=== PATIENT | male | born 1945 | race Caucasian/White ===

== ENCOUNTER 2017-04-07 00:56 | Emergency (ER) | payer MEDICARE ==
[~2017-04-07] VITALS: Ht 182.9 cm; Wt 79.4 kg
[~2017-04-07 00:56] MED LIST: ASPIRIN EC81 MG PO; LISINOPRIL5 MG PO; METFORMIN HCL500 MG PO; NORCO 5-325 TA1 EACH PO; OMEPRAZOLE20 MG PO
[2017-04-07] MEDS ORDERED: METFORMIN HCL1000 M1 PO (01:14)
[2017-04-07] MEDS ORDERED: COLCHICINE0.6 M1 PO (01:16)
[2017-04-07] MEDS ORDERED: DIOVAN40 MG PO (01:17)
== END 2017-04-07 01:32 | disposition home or self-care (01) ==
LOC: ED 00:56
DX: Z48.3 Aftercare following surgery for neoplasm (principal); Z79.899 Other long term (current) drug therapy; Z79.82 Long term (current) use of aspirin
CPT/HCPCS: 99282

== ENCOUNTER 2017-12-24 09:05 | Day surgery (SDC) | payer OTHER ==
[~2017-12-24] VITALS: Ht 182.9 cm; Wt 70.8 kg
[~2017-12-24 09:05] MED LIST changes: +ALEVE PM CAPLE1 EACH PO; +CALCIUM + VITA1 EACH PO; +COLCHICINE0.6 M1 PO; +DILAUDID4 MG PO; +DIOVAN40 MG PO; +METFORMIN HCL1000 M1 PO
--- NOTE | 2017-12-24 10:48 | NUR ---
PREOP GIVEN WARM BLANKET ON HAS BEEN UPDATED ON WAIT.
--- NOTE | 2017-12-24 12:58 | NUR ---
12/24/17 1258 Etelvina Mao 1249 PATIENT ARRIVES TO PACU SLEEPING, DOES NOT RESPOND TO VERBAL STIMULI. MASK AT 6 LITERS, RESP EVEN AND UNLABORED. 1255 PATIENT AWAKENS WITH VERBAL STIMULI, RESP EVEN AND UNLABORED, MASK OFF, SATS 97% ON ROOM AIR. PATIENT DENIES PAIN, THEN BACK TO SLEEP. 1258 XRAY AT BEDSIDE.
--- NOTE | 2017-12-24 14:21 | NUR ---
DR FERNANDO NOTIFIED OF XRAY REPORT, OKAY TO DISCHARGE.
--- NOTE | 2017-12-28 07:32 | OR ---
[facility] [address], [place] [address] Signed DATE OF OPERATION: SURGEON: Misty Fernando MD PREOPERATIVE DIAGNOSIS: Metastatic angiosarcoma. POSTOPERATIVE DIAGNOSIS: Metastatic angiosarcoma. PROCEDURES PERFORMED: 1. Placement of left IJ cdje-N-xpdhnqpn. 2. Physician-directed fluoroscopy. 3. Physician-directed ultrasound. ESTIMATED BLOOD LOSS: None. INDICATIONS: Duncan is a 72-year-old gentleman, who in 2005 was diagnosed with angiosarcoma on his right yarsanism, that had been removed and later he went back and removed more with an additional full neck dissection along with a superficial parotidectomy. Full-thickness skin grafts were utilized. A 20 region lymph nodes were all negative. Unfortunately, the angiosarcoma is now shown up in his liver. He is therefore, awaiting his chemotherapy. He was asked by his medical oncologist to see me for placement of his avfl-U-unfdbvxx. I met with the, Norbert, his daughter in the office. I kiarra a picture of a port catheter for him, I explained to him the placement of a port catheter along the expected intraop and postop course. We did review the risks including, but not limited to bleeding, infection, scarring, change in contour of the skin, catheter embolization requiring retrieval, pneumothorax requiring chest tube placement, and other unforeseen comorbidities. He had expressed understanding and wished to proceed. PROCEDURE NOTE: Geneva was taken into our operating room and placed in the supine position under anesthesia per our nurse disc sander. He was given preoperative antibiotics along with subcutaneous heparin. SCDs were utilized. He was then prepped and draped in the usual sterile fashion. We then used our ultrasound to locate the left internal jugular vein. Local anesthetic was injected over that area and the vein was entered on the 1st pass of the needle. The wire was able to feed without any resistance, whatsoever. The position of the wire was checked with our fluoroscopy unit. After this, the dilator was passed through the skin and out a short distance on his neck. Again, the position was checked Electronically Signed By: MISTY FERNANDO MD 12/28/17 0732 PATIENT NAME: DUNCAN WHITNEY OPERATIVE REPORT DATE OF : 47 REPORT #: [id number] PHYSICIAN: MISTY FERNANDO MD PCP: CHILANGO SALINAS MD REPORT IS CONFIDENTIAL AND NOT TO BE RELEASED WITHOUT AUTHORIZATION [facility] [address], [place] [address] Signed with the help of fluoroscopy unit and the wire was able to pass in and out of the dilator without any resistance, whatsoever. After this, the wire was removed and the catheter was inserted into the dilator and passed around to the right side next to the heart. The catheter was able to flush and draw quite readily. We then removed our dilator sheath. Additional local anesthetic was injected over the left chest wall and his left neck, and we developed a pocket on the left chest wall sharply with a #15 blade knife and bluntly with the hemostat. We then passed the dilator up over the clavicle up to the left neck. We were able to bring the catheter down through the tunnel on to the left chest wall. The catheter was cut the length and the hub was placed onto the catheter and a collar was placed over the connection. The port was able to draw and flush quite readily. We checked a full length of the catheter and it was in good position with no kinks. We then sutured in place with 3 interrupted number 2-0 Prolene sutures. The catheter was able to draw and flush quite readily with our concentrated heparin. We checked the position of the catheter from one and the other, appears to be in good position with no kinks, whatsoever. The wound was then irrigated and suctioned out until clear. We closed the dermis with interrupted 3-0 Monocryl suture on the chest wall and closed the skin with a running 6-0 fast absorbing plain gut suture, on the neck we closed the 4 mm incision with the 5-0 Monocryl suture, and then the skin edges were reapproximated with running 6-0 fast absorbing plain gut suture. Dry gauze and tape were then applied. Geneva was then transferred over to his hospital bed and taken into recovery room in stable condition. His initial chest x-ray has been performed and it looks like there is no pneumothorax and it looks like the catheter is in good position. I am still awaiting the official read. Overall Geneva tolerated the procedure quite well. He has no increased work of breathing, or shortness of breath. Misty Fernando MD ALB/MODL /[id number] cc: MD Chilango Ely MD Dr. LAURA DAVIS Electronically Signed By: MISTY FERNANDO MD 12/28/17 0732 PATIENT NAME: DUNCAN WHITNEY OPERATIVE REPORT DATE OF : 47 REPORT #: [id number] PHYSICIAN: MISTY FERNANDO MD PCP: CHILANGO SALINAS MD REPORT IS CONFIDENTIAL AND NOT TO BE RELEASED WITHOUT AUTHORIZATION [facility] [address] [place], [place] [address] Signed Misty Fernando MD Copies: HAIR RIVERA MD, TIMOTHY MD BOWER, ANDREW L MD ~ Electronically Signed By: MISTY FERNANDO MD 12/28/17 0732 PATIENT NAME: DUNCAN WHITNEY OPERATIVE REPORT DATE OF : 47 REPORT #: [id number] PHYSICIAN: MISTY FERNANDO MD PCP: CHILANGO SALINAS MD REPORT IS CONFIDENTIAL AND NOT TO BE RELEASED WITHOUT AUTHORIZATION
== END 2017-12-24 14:10 | disposition home or self-care (01) ==
LOC: DS 09:05
PROVIDERS: Colon & Rectal Surgery
PROC: 02HV33Z Insertion of Infusion Device into Superior Vena Cava, Percutaneous Approach (ICD-10-PCS; 2017-12-24)
PROC: B518ZZA Fluoroscopy of Superior Vena Cava, Guidance (ICD-10-PCS; 2017-12-24)
PROC: B548ZZA Ultrasonography of Superior Vena Cava, Guidance (ICD-10-PCS; 2017-12-24)
PROC: 0JH60XZ Insertion of Tunneled Vascular Access Device into Chest Subcutaneous Tissue and Fascia, Open Approach (ICD-10-PCS; principal; 2017-12-24 10:45)
DX: C78.7 Secondary malignant neoplasm of liver and intrahepatic bile duct (principal); C49.0 Malignant neoplasm of connective and soft tissue of head, face and neck; I10 Essential (primary) hypertension; K21.9 Gastro-esophageal reflux disease without esophagitis; E78.5 Hyperlipidemia, unspecified; E11.9 Type 2 diabetes mellitus without complications; B19.20 Unspecified viral hepatitis C without hepatic coma; G47.30 Sleep apnea, unspecified; Z79.82 Long term (current) use of aspirin; Z79.84 Long term (current) use of oral hypoglycemic drugs; Z79.899 Other long term (current) drug therapy; Z98.890 Other specified postprocedural states
CPT/HCPCS: 00532; 71045; 77001; C1788; J0690; J1644; J2250; J2405; J2704; J3010; J7120

== ENCOUNTER 2018-01-23 15:26 | Inpatient (IN) | payer MEDICARE ==
[~2018-01-23] VITALS: Ht 182.9 cm; Wt 70.3 kg
[~2018-01-23 15:26] MED LIST changes: +ATIVAN1 MG PO; +DEXAMETHASONE4 MG PO; +ONDANSETRON ODT8 MG PO; +TRAZODONE HCL50 MG PO
--- OUTSIDE RECORDS SUMMARY | 2018-01-23 15:32 | XMS ---
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 E.Zechariah VISIT COUNT (12 MO.) 2 LUZ ELENA Ledesma TOTAL 2 NOTE: Visits indicate total known visits. ED/UCC VISIT TRACKING (12 MO.) 01/23/2018 15:27 LUZ ELENA Lopez OR TYPE: Emergency COMPLAINT: - POSS PORT INFECTION 04/07/2017 00:57 LUZ ELENA Lopez OR TYPE: Emergency COMPLAINT: - WOUND CHECK BACK OF SCALP,S/P DIAGNOSES: - long term care phlebotomist (current) use of aspirin - Aftercare following surgery for neoplasm - Other senior care (current) drug therapy INPATIENT VISIT TRACKING (12 MO.) No inpatient visits to display in this time frame [id number]
[2018-01-23] MEDS ORDERED: TRIAMCINOLONE A15 G1 TOP (16:53)
[2018-01-23] MEDS ORDERED: ALLERGY EYE DROP5 ML OD (16:53)
--- NOTE | 2018-01-23 19:57 | NUR ---
NOTIFIED DR. KEANE ABOUT PATIENT'S MAGNESIUM LEVEL OF 0.9. MD TO PUT IN ORDERS.
--- NOTE | 2018-01-23 20:15 | NUR ---
PT ARRIVES TO ROOM 130 AT 1940 VIA STRETCHER, PT ABLE TO STAND AND TRANSFER HIMSELF INTO BED. PT THEN UP TO BATHROOM WITH SBA, VOIDED 400ML AND HAD SMALL STOOL, URINE SAMPLE SENT TO LAB. PT THEN RETURNED TO BED. ALERT/ORIENTED, DENIES PAIN. LUNGS CLEAR IN UPPER WITH CRACKLES NOTED IN BASES, RA, REGULAR RATE, DENIES SOB. HR REGULAR, DENIES CHEST PAIN. BOWEL TONES ACTIVE, DENIES NAUSEA. SKIN IS VERY DRY AND FLAKY. PT HAS GOLF BALL SIZED AREA TO RIGHT SHINTO AND TENNIS BALL SIZED AREA TO RIGHT POSTERIOR HEAD WHERE HE HAS HAD SKIN CANCER REMOVED. THE SKIN IN THOSE AREAS APPEARS DISCOLORED AND THERE IS A SCAB PRESENT TO THE POSTERIOR SITE. PT ALSO HAS A SMALL SPOT THAT HE CALLS A CYST TO HIS COCCYX THAT HE STATES HE HAS ALWAYS HAD AND IS SOMETIMES PAINFUL. PICTURES OF THESE AREAS PLACED IN CHART BY ED KATHERIN RAND. PORT TO LEFT CHEST HAS ~2CM OPEN SPOT, PORT IS VISIBLE. SITE IS COVERED WITH GAUZE. CB, SLIDING SCALE HELD DUE TO PT NPO STATUS. IV SITE FLUSHED WNL, IV FLUIDS STARTED. PT'S MAGNESIUM WAS 0.9, DR. KEANE NOTIFIED, STATES HE WILL ORDER IV MAGNESIUM REPLACEMENT.
--- NOTE | 2018-01-23 22:13 | NUR ---
PT REQUESTED SOMETHING TO HELP HIM SLEEP, NORMALLY TAKES 50MG PO TRAZODONE, CALLED DR. KEANE WHO STATES TO ORDER THE SAME FOR HERE.
--- NOTE | 2018-01-23 23:30 | NUR ---
ASSESSMENT COMPLETED, NO CHANGES FROM PREVIOUS ASSESSMENT. DRESSING TO LEFT PORT SITE CHANGED, PACKED WOUND OPENING WITH DAKINS SOAKED GAUZE STRIP AND COVERED WITH GAUZE AND TAPE, PT TOLERATED WELL. PT DENIES FURTHER REQUESTS AT THIS TIME, WILL CONTINUE TO MONITOR.
--- NOTE | 2018-01-24 02:41 | NUR ---
PT APPEARS TO BE SLEEPING, NO APPARENT DISTRESS. RESPIRATIONS EVEN AND UNLABORED, RR:20, SPO2:94% ON RA, HR:79. WILL ALLOW FOR REST AND CONTINUE TO MONITOR.
--- NOTE | 2018-01-24 04:00 | NUR ---
PT UP TO BATHROOM WITH SBA, VOIDED 1000ML AND HAD SMALL BM, THEN RETURNED TO BED. ASSESSMENT COMPLETED, NO CHANGES FROM PREVIOUS ASSESSMENT. PER PT ORDERS, PT DOES NOT NEED TO BE NPO TILL 0900, ICE WATER PROVIDED. IV REMAINS PATENT, INFUSING WNL. PT DENIES FURTHER REQUESTS, WILL CONTINUE TO MONITOR.
--- NOTE | 2018-01-24 06:25 | NUR ---
PT RESTING WITH EYES CLOSED, NO APPARENT DISTRESS. RR:18, SPO2:95% ON RA, HR:73. VANCO INFUSION STARTED.
--- NOTE | 2018-01-24 07:32 | NUR ---
CRITICAL LAB VALUE RECEIVED FROM EDGAR IN LAB. PT'S CALCIUM IS 5.9, DR. KEANE NOTIFIED AT THIS TIME, NO ORDERS RECEIVED AT THIS TIME.
--- NOTE | 2018-01-24 12:18 | NUR ---
ASSESSMENT HELD AND ACCUCHECK HELD PATIENT IS ASLEEP AT THIS TIME. NO DISTRESS NOTED.
--- NOTE | 2018-01-24 13:28 | NUR ---
REMAINS ASLEEP, NO DISTRESS NOTED. IVF INFUSING AT 75 ML/HR.
--- NOTE | 2018-01-24 15:00 | NUR ---
UP TO BR WITH ASSIST TO VOID 900 ML OF CLEAR JEANNINE URINE. SPONGE BATH GIVEN WHILE UP. LOTION APPLIED TO EXTREMLY DRY SKIN. DENIES PAIN. BACK TO BED W/O INCIDENT. GRANDDAUGHTER IS IN ROOM.
--- NOTE | 2018-01-24 16:00 | NUR ---
ASSESSMENT DONE. NO FUTHER CHANHES. AWAITING PORT-A-CATH DC'D PER DR. FERNANDO. THIS PLAN TO BE DONE AFTER DR. FERNANDO OFFICE HOURS.
--- NOTE | 2018-01-24 17:10 | NUR ---
TO OR VIA BED. REPORT TO OR NURSES. PT WILL TRANSFERRED TO MEDICAL FLOOR POST DC OF PORT-A-CATH.
--- NOTE | 2018-01-24 17:40 | NUR ---
report phoned to med-surg.
--- NOTE | 2018-01-24 18:21 | NUR ---
01/24/181820 Juju Skelton 1806- PT ARRIVES TO PACU AWAKE AND ORIENTED. OXYGEN SAT HIGH 90'S TO 100% ON RA. PT REPORTS NO PAIN OR NAUSEA. 1812- PT PROVIDED CHAP STICK PER REQUEST. 1821- PT PROVIDED WATER. TOLERATED WELL. REPORTS NO PAIN, NAUSEA, OR DIZZINESS.
--- NOTE | 2018-01-24 18:33 | NUR ---
PT ARRIVED TO ROOM 124 AT 1830 WITH MARI PANDEY. PT SITTING UP IN BED DRINKING WATER. NO NAUSEA OR PAIN. DURAN DRESSING C/D/I. SCDs IN PLACE.
--- NOTE | 2018-01-24 18:53 | NUR ---
POST OP VITAL SIGNS POSTED ON WHITE BOARD. WHITE BOARD UPDATED. FAMILY AT BEDSIDE. CALL LIGHT WITHIN REACH.
--- NOTE | 2018-01-24 19:25 | NUR ---
IN ROOM FOR REPORT, PT IS AWAKE IN BED EATING. HE DENIES PAIN AND FURTHER NEEDS AT THIS TIME. CALL LIGHT IS WITHIN REACH AND FAMILY IS IN ROOM.
--- NOTE | 2018-01-24 20:00 | NUR ---
POST SURGERY VITALS COMPLETED. PT AWAKE, WATCHING TV, REQUESTED AND RECEIVED ICE WATER. NO OTHER NEEDS.
--- NOTE | 2018-01-24 21:20 | NUR ---
VITALS COMPLETED. PT MOSTLY SLEEPY. WANTS A SLEEPING PILL, WILL LET HIS NURSE KNOW. NO OTHER NEEDS AT THIS TIME.
--- NOTE | 2018-01-24 22:30 | NUR ---
LAST POST OP VITALS COMPLETED. ASSISTED UP TO USE URINAL. ABLE TO STAND AT BEDSIDE, STEADY, DID NEED HELP GETTING UP TO A SITTING POSITION. FRESH ICE WATER GIVEN.
--- NOTE | 2018-01-25 00:18 | NUR ---
PT IS AWAKE IN BED, FRESH ICEWATER GIVEN, PT DENIES FURTHER NEEDS.
--- NOTE | 2018-01-25 02:37 | NUR ---
PRN PAIN MEDICATIONS ADMINISTERED FOR PT REPORTED 4/10 PAIN AT SURGICAL SITE AND LEGS. PT STATES "PAIN IS KEEPING ME FROM SLEEPING". CALL LIGHT IN REACH, IVF INFUSING. PT GIVEN ICE WATER.
--- NOTE | 2018-01-25 03:40 | NUR ---
PT IS RESTING WITH EYES CLOSED, RESPIRATIONS ARE EVEN AND NONLABORED. CALL LIGHT IS WITHIN REACH.
--- NOTE | 2018-01-25 04:40 | NUR ---
PT REPORTS HE SLEPT FOR A COUPLE HOURS. DRESSING HAS DRY OLD DRAINAGE, REPLACED SOME TAPE THAT FELL OFF. HE STATES HE DOES NOT NEED ANY PAIN MEDICINE AT THIS TIME. FRESH ICEWATER AT BEDSIDE AND PT DENIES FURTHER NEEDS AT THIS TIME.
--- NOTE | 2018-01-25 07:35 | NUR ---
RECIEVED CHANGE OF SHIFT REPORT FROM ANYA PANDEY. PATIENT RESTING COMFORTABLY IN BED. WHITE BOARD UPDATED. CALL LIGHT WITHIN REACH. IV FLUIDS INFUSING. ANTIBIOTIC INFUSING.
--- NOTE | 2018-01-25 07:47 | NUR ---
CALLED DR. KEANE WITH POSITIVE LAB RESULTS ON THE BLOOD CULUTRE OF GRAM POS COCCI ON BOTH.
--- NOTE | 2018-01-25 08:05 | CONS ---
[facility] [address], [place] [address] Signed DATE OF CONSULTATION: 01/24/2018 CHIEF COMPLAINT: Left IJ Gxvu-Z-Lgkekdhw wound dehiscence. HISTORY OF PRESENT ILLNESS: Geneva is a 72-year-old gentleman, who in 2016 was diagnosed with angiosarcoma of his right episcopal. He had that excised and a full neck dissection done along with a superficial parotidectomy. Full-thickness skin grafts were employed. Twenty regional lymph nodes were all negative. Unfortunately, the cancer has now shown up in his liver. Initially, he declined chemotherapy. Now, he was willing to proceed. Consequently, his medical oncologist asked me to place a Xjdr-H-Eobhjnsv. We placed a left IJ Vwjt-V-Auikbxae back on 12/24/2017 with the help of fluoroscopy and ultrasound. Geneva had spend an enormous amount of time out in the sun throughout his life. His entire chest and shoulders and neck are quite damaged from the sun. The skin is thin and very leathery. Geneva himself is also quite thin. I had explained to Geneva this is concerning for future wound problems along with his chemotherapy. We placed his Fyrb-M-Imrlskfb right up against the muscle on his left chest wall and we sutured the skin incision together very carefully. Unfortunately, he has now developed pneumonia and dehiscence of the wound on his left chest wall. He was admitted last evening to our Internal Medicine Service and started on antibiotics. I have been asked to see him to remove his Zzid-Z-Kpzvymez. ALLERGIES: None. MEDICATIONS: 1. Aspirin. 2. Calcium carbonate. 3. Vitamin D. 4. Colchicine. 5. Hydromorphone. 6. Ketotifen fumarate ophthalmic solution. 7. Metformin. 8. Omeprazole. 9. Triamcinolone. 10. Valsartan. PAST MEDICAL HISTORY: Hypertension, gastroesophageal reflux disease, hyperlipidemia, diabetes mellitus, angiosarcoma with metastatic disease to the liver. PAST SURGICAL HISTORY: Electronically Signed By: MISTY FERNANDO MD 01/25/18 0805 PATIENT NAME: KINJAL WHITNEY CONSULTATION DATE OF : 47 REPORT #: [id number] PHYSICIAN: MISTY FERNANDO MD PCP: RAJAT SALINAS MD REPORT IS CONFIDENTIAL AND NOT TO BE RELEASED WITHOUT AUTHORIZATION [facility] [address] [place] [id number] Signed Includes tympanoplasty, sinus surgery, hernia repair, ankle surgery, excision of the angiosarcoma on the right episcopal with a full right neck dissection including right superficial parotidectomy, and left internal jugular vein Xxhu-Z-Gofjxotw placement on 12/24/2017. SOCIAL HISTORY: He does not smoke. Does not drink. He does not use drugs. 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 His daughter is going to take that over. He is currently with one child remaining. His primary care provider is Dr. Rufus Salinas. His medical oncologist is Dr. Ru Hsu. His surgeon is Dr. Fallon Ayala at [facility]. FAMILY HISTORY: There is cancer and colonic polyps in the family. REVIEW OF SYSTEMS: He had 10 systems reviewed and of course he has had weight loss with hearing loss with need for hearing aids. He talked about some throat pain, his poor appetite, his increased urinary frequency, the diabetes, his insomnia, and lack of energy. PHYSICAL EXAMINATION: GENERAL: Kinjal is a 72-year-old gentleman, who appears certainly thin today, but I would not say quite cachectic. He is alert, awake, and interactive. He answers appropriately. LUNGS: Clear to auscultation. HEART: Regular rate and rhythm. ABDOMEN: Benign. I could see the skin graft on his right episcopal. Over the left chest wall, half the incision for his Ywke-C-Srntcdih has dehisced with some fluid in place. No specific signs or symptoms of infection on the skin surrounding that area. ASSESSMENT AND PLAN: Kinjal is a 72-year-old gentleman, who presents with metastatic angiosarcoma. Unfortunately, he has developed pneumonia and a wound dehiscence of his left IJ Bxob-Y-Yyrzgdyy. The skin over his shoulders and his chest is absolutely sun-damaged and very leathery, however, represents a very difficult issue to heal appropriately. It is now dehisced and the Wxzo-D-Epwcimai needs removed. Geneva is quite aware of this. I explained to Geneva we could just sedate him a little bit with injection of local anesthetic, remove the catheter and place a pursestring suture of absorbable PDS around that tunnel site and we will leave that wound open, packed with full strength Dakin solution for four days and we will switch him to normal saline and it will heal him secondarily over time. There is risk to the procedure including, but not limited to bleeding, infection, scarring, change in contour of the skin as well as catheter embolization requiring retrieval as well as air embolization. He had expressed Electronically Signed By: MISTY FERNANDO MD 01/25/18 0805 PATIENT NAME: KINJAL WHITNEY CONSULTATION DATE OF : 47 REPORT #: [id number] PHYSICIAN: MISTY FERNANDO MD PCP: RAJAT SALINAS MD REPORT IS CONFIDENTIAL AND NOT TO BE RELEASED WITHOUT AUTHORIZATION [facility] [address] [place] [address] Signed understanding and wished to proceed. Consequently, we are going to make those arrangements. Misty Fernando MD [facility]/MODL /[id number] cc: MD Fallon Castle MD Robert C Quackenbush, MD Copies: RAJAT SALINAS MD, Lara E MD QUACKENBUSH, ROBERT C MD ~ Electronically Signed By: MISTY FERNANDO MD 01/25/18 0805 PATIENT NAME: KINJAL WHITNEY CONSULTATION DATE OF : 47 REPORT #: [id number] PHYSICIAN: MISTY FERNANDO MD PCP: RAJAT SALINAS MD REPORT IS CONFIDENTIAL AND NOT TO BE RELEASED WITHOUT AUTHORIZATION
--- NOTE | 2018-01-25 08:05 | OR ---
[facility] [address] [place], [place] [address] Signed DATE OF OPERATION: 01/24/2018 SURGEON: Misty Fernando MD PREOPERATIVE DIAGNOSES: 1. Left chest wall fhue-Q-ydwdasrx wound dehiscence. 2. Chemotherapy for metastatic angiosarcoma. 3. Significantly sun-damaged skin over neck and chest wall. 4. Acute on chronic malnutrition. POSTOPERATIVE DIAGNOSES: 1. Left chest wall jzsw-M-kssjytzb wound dehiscence. 2. Chemotherapy for metastatic angiosarcoma. 3. Significantly sun-damaged skin over neck and chest wall. 4. Acute on chronic malnutrition. PROCEDURE: Removal of left IJ qitc-E-dxzoghzi. ESTIMATED BLOOD LOSS: None. INDICATIONS: Geneva is a 72-year-old gentleman diagnosed with metastatic angiosarcoma. He was asked to see me for placement of rsfi-I-kncclkra for chemotherapy. We decided after a full neck dissection on the right, we would use his left internal jugular vein and placed the bmpi-D-yrrwbory down in his chest. Unfortunately, he has significantly sun-damaged skin which represents an issue for wound healing along with his malnutrition and chemotherapy. In the office, I had gone over this with Geneva in detail. We had placed catheter back on December 24, 2017. In the meantime, he has been undergoing his chemotherapy. Unfortunately, he has developed pneumonia and wound dehiscence of his iuoa-G-mtlpiptt on the left chest wall. He was admitted to the Internal Medicine Service and started on broad-spectrum antibiotics. I was asked to remove the fath-A-dkcmbdhm. I explained to Geneva removing the rjgn-Y-uwdhrrol is a simple matter. We will sedate him lightly, inject local anesthetic around the area, remove the sutures and remove the ntnw-H-vtyehgtd. We will use an absorbable PDS suture around the tunnel in his skin to close that off and in 8-12 weeks that suture will be dissolved. In the meantime, we will pack the wound with full strength Dakin solution and gauze for 4 days and then switch to normal saline. His wound will heal secondarily overtime, though I suspect it will be quite slow. He had expressed understanding, wished to proceed. Electronically Signed By: MISTY FERNANDO MD 01/25/18 0805 PATIENT NAME: KINJAL WHITNEY OPERATIVE REPORT DATE OF : 47 REPORT #: [id number] PHYSICIAN: MISTY FERNANDO MD PCP: RAJAT SALINAS MD REPORT IS CONFIDENTIAL AND NOT TO BE RELEASED WITHOUT AUTHORIZATION [facility] [address] [place] [id number] Signed PROCEDURE NOTE: Geneva was taken into our operating room and placed in the supine position under monitored anesthesia care per nurse ton container shipper. He was already on preoperative antibiotics along with Lovenox. SCDs were utilized. He was then prepped and draped in the usual sterile fashion. Local anesthetic was copiously injected in and around underneath the chop-D-rmmrnmsz held. The remaining one half of the wound was opened sharply with #15 blade knife. The Prolene sutures were cut and removed with the help of a #15 blade knife. We used our 2-0 PDS suture and placed a pursestring around the opening to the tunnel underneath the skin headed up past the clavicle. Catheter was removed intact and we could see that visibly on inspection of the catheter. After this, the pursestring suture was tied down and cut the length. Wound was gently debrided and irrigated until clean. The wound was then packed with full strength Dakin's soaked gauze, covered with dry gauze and tape. Geneva was then transferred to his hospital bed and taken to recovery room in stable condition. Misty Fernando MD ALB/MODL /[id number] cc: MD Misty Castle MD Lara E Davis, MD Robert C Quackenbush, MD Copies: RAJAT SALINAS MD, ANDREW L MD Davis, Lara E MD Electronically Signed By: MISTY FERNANDO MD 01/25/18 0805 PATIENT NAME: KINJAL WHITNEY OPERATIVE REPORT DATE OF : 47 REPORT #: [id number] PHYSICIAN: MISTY FERNANDO MD PCP: RAJAT SALINAS MD REPORT IS CONFIDENTIAL AND NOT TO BE RELEASED WITHOUT AUTHORIZATION [facility] [address] [place] [address] [place] [address] Signed HAIR RIVERA MD ~ Electronically Signed By: MISTY FERNANDO MD 01/25/18 0805 PATIENT NAME: KINJAL WHITNEY OPERATIVE REPORT DATE OF : 47 REPORT #: [id number] PHYSICIAN: MISTY FERNANDO MD PCP: RAJAT SALINAS MD REPORT IS CONFIDENTIAL AND NOT TO BE RELEASED WITHOUT AUTHORIZATION
--- NOTE | 2018-01-25 08:16 | NUR ---
ROUNDED ON PATIENT FOR MORNING ASSESSMENT AND MEDICATION ADMINSTRATION. PATIENT RESTING COMFORTABLY IN BED. IV FLUIDS INFUSING. IV ANTIBIOTIC INFUSING. RECIEVED IN CHANGE OF SHIFT REPORT THAT BLOOD CULTURE SHOWED GRAM POSITIVE COCCI, HOSPTIALIST NOTIFIED. PATIENT AMBULATED TO RESTROOM WITH ASSISTANCE FROM RN, SITTING UP IN CHAIR. PLAN TO PERFORM DRESSING CHANGE AFTER PATIENT HAS SHOWERED. CALL LIGHT WITHIN REACH. POSSESSIONS AT BEDSIDE. NO MORE NEEDS AT THIS TIME.
--- NOTE | 2018-01-25 10:51 | NUR ---
PATIENT IN BED RESTING WITH EYES CLOSED. CALL LIGHT IN REACH. NO FURTHER NEEDS AT THIST TIME.
--- NOTE | 2018-01-25 11:28 | NUR ---
ROUNDED ON PATIENT TO ASSESS PAIN LEVEL, PATIENT REPORTS "1/10" PAIN RATING. EDUCATED PATIENT TO NOTIFY NURSING STAFF IF THEY ARE IN NEED OR MORE PAIN MEDICATION, PATIENT EXPRESSED UNDERSTANDING. WILL CONTINUE TO MONITOR. CALL LIGHT WITHIN REACH. NO COMPLAINTS AT THIS TIME.
--- NOTE | 2018-01-25 12:33 | NUR ---
ROUNDED ON PATIENT FOR MEDICATION ADMINISTRATION, RESTING COMFORATABLY IN BED DRINKING GLUCERNA. PATIENT SALINE LOCKED PER HOSPITALIST ORDER. PATIENT REPORT PAIN A "1/10", DENIES WANTING PAIN MEDICATION AT THIS TIME. WILL CONTINUE TO MONITOR. CALL LIGHT WITHIN REACH. ICE BROUGHT TO PATIENT, NO MORE COMPLAINTS AT THIS TIME.
--- NOTE | 2018-01-25 14:50 | NUR ---
PATIENT IN BED, FAMILY BEDSIDE. CALL LIGHT IN REACH. NO FURTHER NEEDS AT THIS TIME.
--- NOTE | 2018-01-25 15:02 | NUR ---
ROUNDED ON PATIENT FOR AFTERNOON ASSESSMENT AND MEDICATION ADMINSTRATION. PATIENT RESTING COMFORTABLY IN BED WITH VISITORS AT BEDSIDE. CEFEPIME INFUSING. PATIENT REPORTS PAIN A "1/10", DENIES WANTING PAIN MEDICATION AT THIS TIME. PATIENT HAS CONSUMED 1 GLUCERNA TODAY. SCDs ON AND IN PLACE. PLAN TO HAVE PATIENT USE THE RESTROOM TO VOID AFTER AMBULATING IN HALLWAY. CHILDCARE DIRECTOR IN ROOM DRAWING LABS. CALL LIGHT WITHIN REACH. POSSESSIONS AT BEDSIDE. WILL CONTINUE TO MONITOR.
--- NOTE | 2018-01-25 15:23 | NUR ---
PATIENT COMPLAINED OF NOT BEING ABLE TO HAVE A BM IN 2 DAYS, WILL CONTINUE TO MONITOR PATIENT IF THEY WOULD LIKE TO START BOWEL REGIMEN.
--- NOTE | 2018-01-25 19:00 | NUR ---
PERFORMED DRESSING CHANGE TO LEFT UPPER CHEST. DILAUDID GIVEN FOR PAIN AFTER DRESSING CHANGE. VITALS TAKEN BY THIS RN.
--- NOTE | 2018-01-25 19:20 | NUR ---
PATIENT ASSESMENT COMPLETED. PATIENT IS RESTING IN BED WATCHING TV. PATIENT DENIES ANY NEEDS AT THIS TIME. CALL LIGHT IN REACH.
--- NOTE | 2018-01-25 20:20 | NUR ---
PATIENT ASSESMENT COMPLETED. PATIENT CONTINUES TO COMPLAIN OF PAIN AFTER DRESSING CHANGE WAS COMPLETED BY DAY SHIFT. PATIENT RATES PAIN AT A 5/10. PATIENT GIVEN PRN TYLENOL. PATIENT GIVEN EVENING MEDICATIONS PER ORDER. PATIENT REFUSED HIS SS INSULIN. PATIENT EDUCATED ON THE IMPORTANCE OF CONTROLLING HIS BS. PATIENT VERBALIZED UNDERSTANDING AND CONTINUES TO REFUSE. PATIENT ALSO REFUSED HIS BLOOD THINNER. PATIENT EDUCATED ON THE IMPORTANCE. PATIENT VERABLIZES UNDERSTANDING. PATIENT CONTINUES TO REFUSE. PATIENT STATED "NO MORE POKES TONIGHT". PATIENT APPEARS FRUSTRATED. PATIENT PROVIDED WITH SUPPORT. PATIENT STATED "I JUST DONT MEAN TO BE CRANKY, I AM JUST TIRED". PATIENT DENIES ANY FURTHER NEEDS AT THIS TIME. TOWBOAT PILOT IN THE ROOM TO COMPLETE VITALS. CALL LIGHT IN REACH. PATIENTS DRESSING IS C/D/I.
--- NOTE | 2018-01-25 22:45 | NUR ---
PATIENT IS NOW SL AFTER ABX ARE COMPLETED. PATIENT DID NOT AWAKEN WHEN BEING SL. PATIENTS BREATHING IS EVEN AND UNLABORED, RR 17. CALL LIGHT IN REACH.
--- NOTE | 2018-01-26 00:13 | NUR ---
PATIENT HAD A BM X1. PATIENT DENIES ANY PAIN AT THIS TIME. PATIENT IS BACK IN BED RESTING. PATIENT IS REFUSING SCDS AT THIS TIME. PATIENTS ICE WATER REFILLED PER REQUEST. NO FURTHER NEEDS NOTED. CALL LIGHT IN REACH.
--- NOTE | 2018-01-26 02:40 | NUR ---
PATIENTS 0200 ABX ARE INFUSING PER ORDER. PATIENT UP TO THE RESTROOM AND WAS ABLE TO VOID AND HAVE A BM. PATIENT IS BACK IN BED RESTING. CALL LIGHT IN REACH. NO NEEDS NOTED.
--- NOTE | 2018-01-26 04:59 | NUR ---
PATIENT RESTED WELL THROUGHOUT THE SHIFT. PATIENT IS ON AN ADA DIET. PATIENT DENIES NAUSEA. PATIENT IS WORKING WITH PT. OMAR IS A SBA. PATIENT REFUSED SCDS. PATIENT HAS BS PER ORDER. PATIENT HAS WOUND CARE BID. PATIENT IS AAOX3 AND USES CALL LIGHT APPROPRIATELY. PATIENT RECEIVED PRN TYLENOL X1 PER ORDER. PATIENT RECEIVING IV ABX.
--- NOTE | 2018-01-26 06:26 | NUR ---
PATIENT PRE MEDICATED PER REQUEST BEFORE DRESSING CHANGE. PATIENT DENIES ANY FURTHER NEEDS CALL LIGHTIN IN REACH.
--- NOTE | 2018-01-26 07:04 | NUR ---
PATIENTS DRESSING CHANGED COMPLETED. PATIENT TOLERATED DRESSING CHANGE WELL. NO NEEDS NOTED. CALL LIGHT IN REACH.
--- NOTE | 2018-01-26 08:54 | NUR ---
0747 RECIEVED CHANGE OF SHIFT REPORT FROM BRANDEE PANDEY. PATIENT RESTING COMFORTABLY IN BED. SALINE LOCKED. CALL LIGHT WITHIN REACH. WHITE BOARD UPDATED. NO NEEDS AT THIS TIME. 0810: ROUNDED ON PATIENT FOR MORNING ASSESSMENT AND MEDICATION ADMINISTRATION. IV ANTIBITOTIC INFUSING. RESPIRATORY THERAPY IN ROOM VISITING WITH PATIENT. ICE PACK CHANGED. DRESSING INSPECTED, CDI. PATIENT REPORTS THAT WHEN THEY COUGH, SPUTUM IS A YELLOW/RED COLOR, WILL CONTINUE TO MONITOR. PATIENT REPORTS PAIN AT A "3/10", PRN DILAUDID ADMINISTERED AT 0616, WILL CONTINUE TO MONITOR. PAIN. PLAN TO HAVE PATIENT UP IN CHAIR, AMBULATE IN HALLWAY, AND TAKE SHOWER TODAY. CALL LIGHT WITHIN REACH. POSSESSIONS AT BEDSIDE. NO MORE NEEDS AT THIS TIME.
--- NOTE | 2018-01-26 09:29 | NUR ---
DR KEANE ROUNDED IN PATIENT ROOM. THIS RN AMBULATED WITH PATIENT WITH HELP FROM ALETHA, STUDENT RN. FOLLOWED PATIENT WITH WHEELCHAIR. TOOK 2 SITTING BREAKS DURING AMBULATION AROUND SHORT END OF TABOR. TOLERATED FAIR. SOME DIZZINESS WITH WALKING. PT SITTING UP IN RECLINER NOW. CALL LIGHT AND BELONGINGS IN REACH. VANCO INFUSING NOW. MORNING MEDS PASSED AND HEAD TO TOE ASSESSMENT COMPLETED BY MICKEY PANDEY. EXPLAINED TO PATIENT THAT WE WILL PREMEDICATE WITH DILAUDID BEFORE DRESSING CHANGE TO DURAN PORT REMOVAL SITE TONIGHT.
--- NOTE | 2018-01-26 09:48 | NUR ---
PATIENT SITTING UP IN CHAIR. SAID HE ATE HOT CEREAL AND FRUIT FOR BREAKFAST. I PROVIDED HIM TWO COUPONS FOR GLUCERNA FOR WHEN HE GOES HOME. ALSO PROVIDED A HANDOUT ON HOW TO GAIN WEIGHT HAVING DIABETES. DISCUSSED EATING 3 MEALS AND 3 SNACKS, USING WHOLE MILK - HE WAS USING ALMOND MILK BECUASE HE LIKED IT, INCREASING HEALTHY FATS, STARCHY VEGGIES, CREAMY SOUPS, AND PROVIDED NUTRIENT-DENSE SNACK IDEAS. TWO SAMPLE MEAL PLANS PROVIDED TO SHOW HIM WHAT TO EAT. HE ENJOYS FRUIT, BUT I TOLD HIM BE CAREFUL BECAUSE IF FRUIT FILLS HIM UP THEN HE WON'T EAT HIGHER CALORIE FOODS THAT HE NEEDS. HE SAID HE WON'T REMEMBER EVERYTHING BETWEEN NOW AND GOING HOME. I SAID THE HANDOUT IS IN THE PLASTIC BAG FOR HIM TO REVIEW WHEN HE GETS HOME. HE IS HOPING THE [place] HELPS HIM OBTAIN A CAREGIVER. HIS DAUGHTER IS ALSO ABLE TO HELP WITH GR[employer]ERY SHOPPING. WILL CONTINUE TO BE AVAILABLE IF NEEDED.
--- NOTE | 2018-01-26 10:39 | NUR ---
IV ANTIBIOTIC INFUSING. PATIENT AMBULATED TO RESTROOM FROM ASSISTANCE FROM RN. PATIENT REQUESTED THAT THEY GET UP AND AMBULATE IN HALLWAY, WITH ASSISTANCE OF TOOLS DEVELOPER.
--- NOTE | 2018-01-26 11:44 | NUR ---
PATIENT WAS IN BED RESTING. FACE WASHED, BREAKFAST WAS GIVEN, FRESH WATER WAS GIVEN, NO OTHER NEEDS AT THIS TIME.
--- NOTE | 2018-01-26 14:04 | NUR ---
ROUNDED ON PATIENT FOR MEDICATION ADMINISTRATION. PATIENT REPORTS THAT PAIN IS DOING "FINE" AND IS A "1/10" ON THE PAIN SCALE, DENIES WANTING PAIN MEDICATION AT THIS TIME. PROVIDED PATIENT LOTION FOR DRY SKIN, PATIENT SHAYY THAT NOW. PLAN TO HAVE PATIENT SIT UP IN CHAIR DURING DINNER. PLAN FOR PATIENT TO TAKE SHOWER AFTER IV ANTIBIOTICI IS DONE INFUSING. SCDs IN PLACE AND ON. BROUGHT PATIENT 2ND GLUCERNA. CALL LIGHT WITHIN REACH. POSSESSIONS AT BEDSIDE. WILL CONTINUE TO MONITOR.
--- NOTE | 2018-01-26 14:33 | NUR ---
PATIENT RESTING IN BED, NO NEED TO USE THE RESTROOM AT THIS TIME. FRESH WATER, CALL LIGHT IN REACH. NO OTHER NEEDS AT THIS TIME
--- NOTE | 2018-01-26 15:11 | NUR ---
PATIENT UP TO SHOWER CHAIR AND BACK TO BED 1 PERSON ASSIST/SBA. PATIENT INDEPENDENT IN SHOWER. NEW GOWN PROVIDED. LINEN CHANGE. CALL LIGHT IN REACH. NO FURTHER NEEDS AT THIS TIME.
--- NOTE | 2018-01-26 16:08 | NUR ---
PT SHOWERED THIS AFTERNOON. AMBULATED HALLS WITH PHYSICAL THERAPY. TOLERATED WELL. WILL REDRESS CHEST DRESSING SOON.
--- NOTE | 2018-01-26 16:35 | NUR ---
ROUNDED ON PATIENT FOR AFTERNOON ASSESSMENT PATIENT RESTING COMFORTABLY IN BED. REPORTED "5/10" PAIN LEVEL, PRN TYLENOL ADMINSTERED. CALL LIGHT WITHIN REACH. NO COMPLAINTS AT WITH TIME. POSSESSIONS AT BEDSIDE.
--- NOTE | 2018-01-26 18:32 | NUR ---
ROUNDED ON PATIENT TO PERFORM DRESSING CHANGE ON UPPER LEFT SIDE OF CHEST. PATIENT RECIEVED PRN DILAUDID FOR PAIN BEFORE DRESSING CHANGE WAS CONDUCTED, PATIENT TOLERATED WELL. CALL LIGHT WITHIN REACH.
--- NOTE | 2018-01-26 18:35 | NUR ---
PATIENT ALERT AND ORIENTED X4. SBA. SALINE LOCK. RECIEVING IV ANTIBIOTICS, VANCO AND CEFEPIME. SHOWER TODAY. WORKED WITH PHYSICAL THERAPY. AMBULATED IN HALLWAY THREE TIMES. DRANK 3 GLUCERNAS TODAY. ACCU CHECK WITH SLIDING SCALE. DRESSING CHANGE PERFORMED ON UPPER LEFT CHEST, PRN DILAUDID PROVIDED BEFORE DRESSING CHANGE. PRN TYLENOL AT 1628. PLAN FOR POSSIBLE DISCHARGE TOMORROW. LEVOQUIN ON NOC SHIFT.
--- NOTE | 2018-01-26 20:03 | NUR ---
RECEIVED REPORT FROM DAY SHIFT RN. PATIENT IS RESTING IN BED VISTING WITH A FRIEND. PATIENT DENIES ANY NEEDS. CALL LIGHT IN REACH.
--- NOTE | 2018-01-26 20:35 | NUR ---
PATIENT ASSESMENT COMPLETED. PATIENTS EVENING MEDICATIONS GIVEN PER ORDER. PATIENT RATES PAIN AT A 3/10. PATIENT DENIES THE NEED FOR PAIN MEDICATION. ICE APPLIED TO LEFT UPPER CHEST. PATIENT REFUSED TO HACE HI BS TAKEN, SS, LOVENOX, AND SCDS. PATIENT EDUCATED ON THE IMPORTANCE OF ALL OF THESE INTERVENTIONS. PATIENT VERBALIZED UNDERSTANDING. PATIENT IS RESTING IN BED. IV ABX INFUSING. PATIENT DENIES ANY FURTHER NEEDS. CALL LIGHT IN REACH.
--- NOTE | 2018-01-26 23:11 | NUR ---
PATIENTS MEDICATIONS GIVEN PER ORDER. PATIENT DENIES ANY NEEDS. CALL LIGHT IN REACH.
--- NOTE | 2018-01-27 00:43 | NUR ---
PATIENT IS NOW SL. PATIENT DENIES ANY NEEDS. CALL LIGHT IN REACH.
--- NOTE | 2018-01-27 01:33 | NUR ---
IV ABX INFUSING PER ORDER. PATIENT IS IN BED RESTING AND WATCHING TV. PATIENT DENIES ANY PAIN. PATIENT OFFERED WARM BLANKET. PATIENT DENIED THE OFFER. PATIENT DENIES ANY NEEDS. CALL LIGHT IN REACH.
--- NOTE | 2018-01-27 03:24 | NUR ---
PATIENT IS RESTING IN BED WITH EYES CLOSED, RR 17. CALL LIGHT IN REACH.
--- NOTE | 2018-01-27 05:06 | NUR ---
PATIENT RESTED ON AND OFF THROUGHOUT THE SHIFT. PATIENT IS ON AN ADA DIET. PATIENT IS NOTED TO HAVE A DECREASED APPETITE. PATIENT IS WORKING WITH PT. PATIENT IS A SBA. PATIENT REFUSED SCDS. PATIENT HAS DRESSING CHANGE Q-SHIFT. PATIENT HAS ICE APPLIED TO AFFECTED AREA PRN. PATIENT DENIED PAIN. PATIENTS OUPUT IS QS. PATIENT IS AAOXS AND USES CALL LIGHT APPROPRIATELY. IV IS SL AND FLUSHES WELL.
--- NOTE | 2018-01-27 05:49 | NUR ---
PATIENTS VITALS TAKEN AND RECORDED. INTAKE AND OUPUT RECORDED. PATIENT DENIES ANY PAIN. PATIENT ASSISTED TO THE RESTROOM A SBA. PATIENT WAS ABLE TO VOID AND HAVE A BM. PATIENTS ICE WATER REFILLED AND ENSURE PROVIDED. PATIENT IS RESTING IN BED. PATIENT IS NOW SL AFTER IV ABX COMPLETED. PATIENT IS AAOX3. PATIENT DENIES ANY NEEDS. CALL LIGHT IN REACH.
--- NOTE | 2018-01-27 07:18 | NUR ---
SHIFT REPORT RECEIVED FROM SALES REPRESENTATIVE SALES MANAGER RN AT BEDSIDE. PATIENT IS LAYING IN BED AND APPEARS TO BE SLEEPING. EYES ARE CLOSED, RESPIRATIONS EVEN AND UNLABORED. PATIENT IS SALINE LOCKED, BED IN LOWEST POSITION. CALL LIGHT WITHIN REACH.
--- NOTE | 2018-01-27 08:14 | NUR ---
[facility] PER [facility] REQUEST FOR FOLLOW UP CARE OF THIS PT.
--- NOTE | 2018-01-27 09:00 | NUR ---
MORNING ASSESSMENT AND ROUTINE MEDICATIONS ADMINISTERED. PATIENT DENIES PAIN AT THIS TIME. 2 MG DILAUDID ADMINISTERED FOR UPCOMING SCHEDULED DRESSING CHANGE. PATIENT DENIES FURTHER NEEDS AT THIS TIME, CALL LIGHT WITHIN REACH.
--- NOTE | 2018-01-27 09:48 | NUR ---
DOCTOR LAKHWINDER NOTIFIED OF POSITIVE BLOOD CULTURES
--- NOTE | 2018-01-27 10:05 | NUR ---
NOTIFIED BY LAB OF CRITTICAL CALCIUM LEVEL OF 6.0. DR. KEANE NOTIFIED IN PERSON, NO NEW ORDERS AT THIS TIME.
--- NOTE | 2018-01-27 10:45 | NUR ---
MORNING DRESSING CHANGE TO LEFT UPPER CHEST COMPLETE PER MD ORDERS. PATIENT TOLERATED DRESSING CHANGE WELL, DENIES FURTHER NEEDS AT THIS TIME. CALL LIGHT WITHIN REACH. FRIEND IN ROOM VISITING WITH PATIENT.
--- NOTE | 2018-01-27 12:52 | NUR ---
SCHEDULED TUMS AND PHOS-NAK PACKETS ADMINISTERED. NOON BLOOD SUGAR RESULT OF 131, NO INSULIN ADMINISTERED. BLOOD SUGAR WITHIN RANGE OF NORMAL. CALL LIGHT WITHIN REACH.
--- NOTE | 2018-01-27 14:36 | NUR ---
MED REC COMPLETE
--- NOTE | 2018-01-27 15:30 | NUR ---
Scheduled oxacillin and phos-nak packets administered. Patient denies pain at this time. Afternoon assessment complete. Call light within reach.
--- NOTE | 2018-01-27 15:35 | NUR ---
PATIENT WALKED WITH PHYSICAL THERAPY.
--- NOTE | 2018-01-27 17:15 | NUR ---
PATIENT COMPLAINING OF BURNING AT IV SITE. IV SITE APPEARS MILDLY RED AND IS NOT FLUSHING. IV CATHETER REMOVED, NO BLEEDING NOTED. CATHETER TIP INTACT. IV SITE REINFORCED WITH GAUZE AND COBAN. ICE APPLIED TO SITE AND PILLOWS APPLIED UNDER AFFECTED ARM. CALL LIGHT WITHIN REACH.
--- NOTE | 2018-01-27 17:25 | NUR ---
EVENING BLOOD SUGAR RESULT OF 170, ONE UNIT OF INSULIN LISPRO ADMINISTERED PER SLIDING SCALE ORDER. PATIENT DENIES PAIN WELL FURTHER NEEDS AT THIS TIME. CALL LIGHT WITHIN REACH.
--- NOTE | 2018-01-27 18:28 | NUR ---
NEW IV PLACED IN LEFT WRIST. 22 GAUZE, IV SITE WNL. SCHEDULED OXACILLIN CURRENTLY INFUSING. PATIENT DENIES FURTHER NEEDS AT THIS TIME, CALL LIGHT WITHIN REACH.
--- NOTE | 2018-01-27 18:33 | NUR ---
PATIENT ON ROOM AIR, VSS. PATIENT IS ON ADA DIET WITH INSULIN SLIDING SCALE COVERAGE WHEN NEEDED. PATIENT HAS HAD DECREASED APPETITE. PATIENT IS ONE PERSON STANDBY ASSIST AND HAS BEEN WORKING WITH PHYSICAL THERAPY. BID DRESSING CHANGE SCHEDULED FOR LEFT UPPER CHEST. SCHEDULED IV ANTIBIOTICS. PATEINT USES CALL LIGHT APPROPRIATELY. PO PAIN MEDS PRN.
--- NOTE | 2018-01-27 20:06 | NUR ---
CHARGE NURSE NOTE:. PT IN BED WATCHING TV. UPSET OVER NOISE CREATED BY IV PUMP GOING OFF"FOR 1/2 AN HOUR, THE [employer] GUIDE STOPPED 6 MINUTES AGO AND SAID SHE WAS GOING TO GET SOMEBODY, AND HERE YOU ARE, BUT I COULD HAVE , SOMEBODY COULD HAVE BECAUSE I WAS NOT CHECKED INTO [facility]O 1/2 AN HOUR". PT NOT VERY RECEPTIVE TO EXPLANATIONS, DIGITAL CARTOGRAPHER NOTIFIED. PT CALM BUT CONTINUES TO REITERATE THAT NOBODY CHECKED ON HIM FOR HALF AN HOUR.
--- NOTE | 2018-01-27 21:00 | NUR ---
IN ROOM TO ADMIN EVENING MEDS. SHIFT ASSESSMENT COMPLETE. PT AOX4 SITTING IN BED, FAMILY AT BEDSIDE. PT'S BLOOD GLUCOSE 114, SEE EMAR. PT'S LS DIM IN BASES WITH SCANT CRACKLES, DENIES SOB ON RA. BT ACTIVE, ABD NONTENDER, PT STATES HE HAD A BM TODAY. PULSES EQUAL THROUGHOUT. PT'S SKIN VERY DRY/THICK ON ABDOMEN. WOUND VISUALISED, DRESSING C/D/I. PT DENIES ANY NOTABLE PAIN RATES PAIN 05/12. DENIES N/V. VSS. NO REQUESTS AT THIS TIME. CALL LIGHT WITHIN REACH.
--- NOTE | 2018-01-27 21:55 | NUR ---
VITALS DONE AND CHARTED. BEDSIDE TABLE AND CALL LIGHT IN REACH.
--- NOTE | 2018-01-27 23:00 | NUR ---
PT MOVED TO ROOM 112. PT RESTING IN BED. PRN PAIN MEDICATION GIVEN PRIOR TO DRESSING CHANGE PER PT REQUESTS. NO NEEDS AT THIS TIME. CALL LIGHT WITHIN REACH.
--- NOTE | 2018-01-27 23:55 | NUR ---
DRESSING ON LEFT PORT WOUND CHANGED. OLD GAUZE REMOVED. WOUND CLEANED WITH NS AND SOAP PER ORDER. NEW SOAKED GAUZE WITH DANKINS SOLUTION PLACED IN WOUND BED. WOUND APPEARED CLEAN, SMALL AMOUNT OF DRAINAGE ON OLD GAUZE NONE IN WOUND BED. NONADHERENT PAD PLACED OVER WOUND AND TAPED INTO POSITION. PT TOLERATED WELL. NO REQUESTS AT THIS TIME. CALL LIGHT WITHIN REACH.
--- NOTE | 2018-01-28 02:47 | NUR ---
SCHEDULED ABX STARTED. IV RUNNING WNL. PT SLEEPING SOUNDLY. NO C/O PAIN. NO NEEDS AT THIS TIME. CALL LIGHT WITHIN REACH.
--- NOTE | 2018-01-28 05:23 | NUR ---
PT HAS SLEPT MOST OF TONIGHT. PT AOX4. REMAINS ON RA. URINE QS. NO BM THIS SHIFT. WOUND DRESSING CHANGED THIS SHIFT. WOUND CLEAN, GAUZE SOAKED IN DANKINS. PT RECIEVED PRN PAIN MEDICATION ONCE THIS SHIFT PRIOR TO DRESSING CHANGE. PT TOLERATED WELL. PT'S BLOOD GLUCOSE 114 THIS SHIFT. NO INSULIN COVERAGE INDICATED. NO C/O N/V THIS SHIFT. PT AFEBRILE, VSS.
--- NOTE | 2018-01-28 06:38 | NUR ---
VITALS AND I&OS DONE AND CHARTED. FRESH ICE WATER GIVEN. BEDSIDE TABLE AND CALL LIGHT IN REACH. GARBAGES EMPTIED AND ROOM CLEANED UP. PT NEEDS NOTHING AT THIS TIME.
--- NOTE | 2018-01-28 06:53 | NUR ---
LAB CALLED TO REPORT CRITICAL LAB VALUE OF CALCIUM 6.1 NOTIFIED. NO NEW ORDERS. WRITTEN IN BOOK.
--- NOTE | 2018-01-28 07:44 | NUR ---
DID PATIENT'S BLOOD SUGAR CHECK ALSO ORDERING HIS BREAKFAST. WOULD LIKE TO TAKE A SHOWER SOMETIME TODAY. WILL SET IT UP.
--- NOTE | 2018-01-28 09:29 | NUR ---
IN GOOD SPIRITS, UP FOR SHOWER, MED LOOSE BM, SPEC SENT TO LAB. WATCHING TV. PLEASED WITH NEW ROOM AND VIEW. CALL LIGHT IN EASY REACH.
--- NOTE | 2018-01-28 10:01 | NUR ---
PT WITH INCREASING ANXIETY, STATES HE SPOKE WITH DR FRANK AND KNOWS HE IS GOING TO . DAUGHTER HAS JUST GOT TO ROOM AND IS CALLING OTHER FAMILY MEMBERS. I PLACED A CALL TO DR FRANK AND INFORMED HER OF PT'S INCREASING ANXIETY AND DAUGHTER IS HERE NOW. WILL CONT. TO SUPPORT PT AND FAMILY.
--- NOTE | 2018-01-28 10:25 | NUR ---
PATIENT REFUSED VITALS. NURSE NOTIFIED.
--- NOTE | 2018-01-28 10:54 | NUR ---
PT IS MUCH CALMER NOW, TEARFUL AT TIMES, MULTIPLE FAMILY MEMBERS AT BEDSIDE. ASKING NOT TO BE BOTHERED FOR A WHILE. AGREED TO HAVE SCHEDULED ABX GIVEN. REFUSED BLOODSUGAR FOR CARLO. CONT. TO SUPPORT PT AND FAMILY.
--- NOTE | 2018-01-28 14:30 | NUR ---
PT RESTING QUIETLY WITH FRIEND SITTING AT BEDSIDE, STATES HE IS FEELING "BETTER". AGREED TO HAVE DRSG CHANGED TO CHEST. MEDICATED WITH DILAUDID FOR PAIN WITH DRSG CHANGE. WOUND IS CLEAN WITH SOME NEW TISSUE GRANULATION AT EDGES. TOLERATED WELL. AGREED TO EAT SOME SOUP. ORDERED FROM [employer].
--- NOTE | 2018-01-28 17:51 | NUR ---
CONT. TO BE IN MUCH BETTER SPIRITS THIS EVENING, EATING DINNER. SCHEDULED ABX GIVEN. FAMILY IS VERY SUPPORTIVE.COOPERATIVE WITH DRSG CHANGE.
--- NOTE | 2018-01-28 20:00 | NUR ---
RECEIVED REPORT AT 1900, FOUND PT IN BED WITH FAMILY AT BEDSIDE. PT HAD NO NEEDS OR CONCERNS AT THAT TIME.
--- NOTE | 2018-01-28 21:33 | NUR ---
charge nurse rounding note:, Pt continues to have minor little c/o , not easily redirectable, passive verbally non compliant. Family in room. Decelines needing to have bed moved as he c/o bed making weird noises, iv pump and scds were found to be the culprits earlier in am shift. no other abnormal noises except for IV pump heard. Will try and resolve to pts satsfaction and reassure him of his safety. Call light and fluids within hands reach
--- NOTE | 2018-01-28 22:00 | NUR ---
V/S ARE WDL. 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 PT STATED THAT HE WANTS TO HAVE A HOSPICE CONSULT [facility]. ALL LOBES ARE CLEAR. ABD SOUNDS ARE PRESENT. OVERALL STRENGTH IS +4. URINE OUTPUT IS ADEQUATE.BS WAS 106, NO INSULIN NEEDED. DRESSING CHANGE TO BE DONE.
--- NOTE | 2018-01-28 22:19 | NUR ---
ASKED PT IF I COULD DO A SET OF VITALS, HE REFUSED AT THIS TIME. FRESH ICE WATER GIVEN. I&OS DONE AND CHARTED. PT NEEDS NOTHING MORE AT THIS TIME.
--- NOTE | 2018-01-29 | NUR ---
PT IS AWAKE IN BED WATCHING TV WITH FAMILY AT BEDSIDE.
--- NOTE | 2018-01-29 02:01 | NUR ---
ASSISTED PT TO BATHROOM. HE WILL CALL WHEN DONE.
--- NOTE | 2018-01-29 04:00 | NUR ---
PT AT THIS TIME IS SLEEPING.
--- NOTE | 2018-01-29 05:24 | NUR ---
OVERALL PT HAD AN UNEVENTFUL NIGHT. AT START OF SHIFT PT EXPRESSED THAT HE WISHES TO GO ON HOSPICE CARE AND WISHES FOR A PAINLESS . PT AT TIME SEEMED TO BE ABLE TO ACCEPT AND DEAL WITH HIS OWN MORTALITY. LOBES ARE CLEAR, ABD SOUNDS ARE PRESENT, NO EDEMA NOTED ,STRENGTH OVERALL IS OK. DRESSING CHANGE WILL BE DONE SHORTLY. DRESSING ON LEFT CHEST HAS REMAINED DRY SO FAR. V/S ARE WDL SO FAR. WILL CONTINUE TO MONITOR PT EMOTIONAL AND MENTAL STATE. NO OTHER CONCERNS SO FAR.
--- NOTE | 2018-01-29 06:28 | NUR ---
DRESSING CHANGE DONE.
--- NOTE | 2018-01-29 07:20 | NUR ---
REPORT RC'D FROM [facility] SHIFT NURSE LEONELA. PT RESTING IN BED WITH EYES CLOSED, RESPIRATIONS EVEN AND UNLABORED, NO ACUTE DISTRESS NOTED.
--- NOTE | 2018-01-29 08:17 | NUR ---
pateint in bed, blood sugar taken, reported to nurse, patient refused breakfast, and a meal replacement shake
--- NOTE | 2018-01-29 09:00 | NUR ---
PT RESTING IN BED. A&O X3, VERBALIZATIONS CLEAR, RESPONDS APPROPRIATELY, PERRLA. RHYTHM REGULAR, RESEARCH FOOD TECHNOLOGIST LESS THAN 3 SECS, PERIPHERAL PULSES PALPABLE +2 UPPER AND LOWER BILATERALLY, NO EDEMA NOTED, DENIES N/T, PT REFUSES TO SCD, EDUCATION PROVIDED. RESPIRATIONS EVEN AND UNLABORED, LUNG CLEARS THROUGHOUT, NO COUGH NOTED. PT REFUSING TO EAT AT THIS TIME, PT STATES, "I'M GOING TO GO OUT ON AN EMPTY STOMACH," EDUCATION PROVIDED ON INTAKE, PT CONTINUES TO REFUSE. VOIDING QS. PT STATES HE WOULD LIKE TO BE LEFT ALONE. PT STATES THAT HE HAS RC'D A LOT OF "BAD NEWS" AND WOULD LIKE TO PROCESS. DENIES OTHER NEEDS CALL LGIHT WITHIN REACH. WILL CONTINUE TO MONITOR AND ENCOURAGE PO INTAKE.
--- NOTE | 2018-01-29 10:30 | NUR ---
PT RESTING IN BED AND VISITING WITH FAMILY MEMBER. ABX STARTED AT THIS TIME. PT STATES," I WOILD LIKE SOME TIME ALONE WITH MY FRIEND." CALL LIGHT WITHIN REACH.
--- NOTE | 2018-01-29 11:39 | NUR ---
misa in room, with , went to do blood sugar they asked me to come back, reported to nurse.
--- NOTE | 2018-01-29 12:00 | NUR ---
SUPERVISOR PLATE FORMING REPORTS PT REFUSED FSBS AND LUNCH. THIS RN IN ROOM, PT STATES HE IS NOT GOING TO EAT AND DOES NOT WANT TO BE BOTHERED WITH, EDUCATION PROVIDED, PT VERBALIZED UNDERSTANDING, PT CONTINUES TO REFUSE. WILL CONTINUE TO MONITOR.
--- NOTE | 2018-01-29 12:30 | NUR ---
PT'S FAMILY REPORTED TO THIS RN THAT PT IS STATING "HE WISHES HE COULD JUST HAVE A BULLET," "I WISH THIS WAS ALL JUST OVER," AND "I JUST WANT THEM TO LEAVE ME ALONE." PT'S FAMILY MEMBER STATES PT IS RESTING AT THIS TIME AND REQUESTING TO NOT BE BOTHERED. FAMILY BACK IN ROOM AT THIS TIME.
--- NOTE | 2018-01-29 14:30 | NUR ---
PT REQUESTING TO HAVE ALL MEDICATION INVOLVING NEEDLE STICKS TO BE DC'D INCLUDING, FSBS AND INSULIN, EDUCATION PROVIDED ON RISK FACTORS AND BENEFITS, PT VERBALIZED UNDERSTANDING OF RISKS AND BENEFITS, PT STILL REQUESTING TO HAVE DC'D. DR. RHOADES INFORMED OF PT'S REQUEST. PT REFUSING ASSESSMENT AND VITAL SIGNS AT THIS TIME. FAMILY MEMBERS AT BEDSIDE REQUESTING PRIVACY.
--- NOTE | 2018-01-29 14:48 | NUR ---
PATIENT REFUSED BLOOD SUGAR X2, AND LUNCH. REPORTED TO NURSE
--- NOTE | 2018-01-29 17:30 | NUR ---
THIS RN TO PT'S ROOM, PT STATES "NO" UPON ENTERING. THIS RN TO ASSESS PT'S WILLINGNESS TO CONTINUE PO MEDS AND ABX, PT AGREEABLE AT THIS TIME. PT REQUESTING TO HAVE LIMITED INTERVENTIONS. DENIES OTHER NEEDS. CALL LIGHT WITHIN REACH.
--- NOTE | 2018-01-29 18:21 | NUR ---
PT REFUSED MOST INTERVENTIONS, ASSESSMENTS, FOOD, AND MEDICATION TODAY. PT ALLOWED TO VISIT WITH FAMILY MOST OF THE DAY AND PROCESS UPCOMING HOSPICE MEETING. PER PT AND FAMILY REQUEST, INTERVENTIONS, ASSESSMENTS, AND ANY NEEDLES STICKS INCLUDING FSBS TO BE HELD. DISCUSSED PT'S WISHES WITH DR. RHOADES, ACCU CHECKS AND INSULIN DC'D AT THIS TIME PER PT'S REQUEST. EDUCATION PROVIDED ON INTAKE, MEDS AND INTERVENTIONS,PT ACKNOWLEDGED RISKS, VERBALIZED UNDERSTANDING, PT CONTINUES TO REFUSE MOST CARE AT THIS TIME.
--- NOTE | 2018-01-29 18:27 | NUR ---
pateint used restroom, he ate a bit of a snack with a sugar free meal replacement shake, he is currently resting in bed and didnt need any other assistance at the time
--- NOTE | 2018-01-29 21:19 | NUR ---
pt resting in bed, refuses assessment. denies needs. states "Just let me know when I am clear to be discharged." family at bedside pt does accept HS medications and iv antibiotics which were administered. Pt's respirations are even and unlbaored and he denies pain or sob. call light and h20 in reach.
--- NOTE | 2018-01-29 21:49 | NUR ---
pt resting in bed. pt has family in room. call light within reach.
--- NOTE | 2018-01-29 22:39 | NUR ---
charge nurse rounding mote:, awake, visiting with family, no requests, call light and fluids at bedside
--- NOTE | 2018-01-30 00:23 | NUR ---
PT RESTING SUPINE IN BED, EYES CLOSED AND RESPIRATIONS EVEN AND UNLABORED PT APPEARS TO BE SLEEPING COMFORTABLY. CALL LIGHT AND H2O IN REACH.
--- NOTE | 2018-01-30 04:44 | NUR ---
PT RESTING SUPINE IN BED, RESPIRATIONS EVEN AND UNLABAORED, CALL LIGHT AND H20 IN REACH. PT APPEARS TO BE IN NO ACUTE DISTRESS.
--- NOTE | 2018-01-30 05:12 | NUR ---
PT APPEARED TO HAVE SLEPT COMOFRTABLY FOR MAJORITY OF NIGHT. PT REFUSED MOST ASSESSMENTS AND CARE THIS SHIFT. PT HAS BEEN COMPLIANT WITH PO AND IV MEDICATIONS. DSG TO LEFT CHEST IS CLEAN DRY AND INTACT. PT HAS VERBALIZED THAT HE WOULD LIKE TO BE DISCHARGED SOON AND IS AWAITING HOSPICE CONSULT ON WEDNESDAY.
--- NOTE | 2018-01-30 06:28 | NUR ---
DSG CHANGE COMPLETED PER MD ORDER. PT RESTING SUPINE IN BED STATES PAIN LEVEL IS TOLERABLE. CALL LIGHT AND FRESH H20 IN REACH.
--- NOTE | 2018-01-30 07:05 | NUR ---
REPORT RC'D FROM [employer] INSTRUCTOR NURSE CARLITA. PT RESTING IN BED WITH EYES CLOSED, RESPIRATIONS EVEN AND UNLABORED, NO ACUTE DISTRESS, FAMILY MEMBER AT BEDSIDE.
--- NOTE | 2018-01-30 07:42 | NUR ---
patient in bed, he said he wanted his breakfast
--- NOTE | 2018-01-30 08:30 | NUR ---
PT UP IN BED WATCHING TV WITH FAMILY MEMBER AT BEDSIDE. PT APPEARS LESS ANXIOUS AND IRRITABLE THIS AM AND MORE AGREEABLE TO CARE. PT A&O X 3, VERBALIZATIONS CLEAR, AND RESPONDING APPROPRIATELY. RHYTHM REGULAR, NEUROSURGERY SPINE PHYSICIAN LESS THAN 3 SEC, +1 EDEMA TO BLE, DENIES N/T, REFUSING SCDS. RESPIRATION EVEN AND UNLABORED, LUNGS CLEAR THROUGHOUT ALL PORTILLO BILATERALLY, NO COUGH NOTED. PT AGREEABLE TO MEALS THIS MORNING, TOLERATING ADA DIET, DENIES NAUSEA. VOIDING QS. LEFT CHEST WOUND SITE COVERED WITH GAUZE AND PAPER TAPE, C/D/I. PT AGREEABLE TO DRESSING CHANGE LATER THIS AFTERNOON. IV SITE FLUSHED WITH 10 ML NS, PATENT, WNL. SCHEDULED OXACILLIN. DENIES PAIN. BREAKFAST AT BEDSIDE. CALL LIGHT WITHIN REACH.
--- NOTE | 2018-01-30 10:30 | NUR ---
PT RESTING COMFORTABLY IN BED WATCHING TV. SCHEDULED OXACILLIN STARTED AT THIS TIME. PT DENIES OTHER NEEDS. CALL LIGHT WITHIN REACH.
--- NOTE | 2018-01-30 12:30 | NUR ---
NO ACUTE CHANGES. SCHEDULED MEDS GIVEN. DENIES OTHER NEEDS. CALL LIGHT WITHIN REACH.
--- NOTE | 2018-01-30 14:00 | NUR ---
PT IN ROOM VISITING WITH FAMILY. NO ACUTE CHANGS. DENIES OTHER NEEDS.
--- NOTE | 2018-01-30 14:39 | NUR ---
pateint in room visiting with family will get vital signs soon they asked if i could come back
--- NOTE | 2018-01-30 15:09 | NUR ---
PT RESTING BED VISITING WITH FAMILY MEMBERS. DRESSING CHANGE COMPLETED AT THIS TIME. DRESSING REMOVED, NO DRAINAGE, SITE DRY, NO REDNESS OR WARMTH. SITE CLEANSED, NS SOAKED GAUZE PLACED, DRY GAUZE OVER, LOOSE PAPER TAPE APPLIED, PT TOLERATED WELL. PT DENIES PAIN DURING CHANGE OR AFTER. DENIES OTHER NEEDS AT THIS TIME. CALLLIGHT WITHIN REACH.
--- NOTE | 2018-01-30 16:20 | NUR ---
PT RESTING IN BED WITH EYES CLOSED, NO ACUTE DISTRESS NOTED.
--- NOTE | 2018-01-30 18:21 | NUR ---
OVERALL IMPROVEMENT IN MOOD, DECREASED IRRITABILITY AND ANXIETY, PT MORE ACCEPTING OF INTERVENTION AND CARE. SCHEDULED ABX. DRESSING CHANGES. PT APPETITE IMPROVING. NO PAIN REPORTED THROUGHOUT SHIFT. SBA TO RESTROOM, VOIDING QS. POSSIBLE PICC PLACEMENT TOMORROW. HOSPICE CONSULT DARIEL'D FOR TOMORROW.
--- NOTE | 2018-01-30 19:15 | NUR ---
REPORT RECEIVED FROM DAYSHIFT RN, PT APPEARS TO BE IN BETTER SPIRITS TODAY AND IS LAUGHING AND VISITING WITH FAMILY WHO IS IN ROOM VISITING WITH HIM. CALL LIGHT/H20 IN REACH AND NO NEEDS OR CONCERNS VOICED.
--- NOTE | 2018-01-30 21:24 | NUR ---
PT RESTING SUPINE IN BED WATCHING TV, RESPIRATIONS EVEN AND UNLBAORED. ASSESSMENT COMPLETED WITH PT'S APPROVAL. PT SEEMS TO BE IN BETTER SPIRITS. IV ABX INFUSING AND PO HS MEDS ADMINISTERED. CALL LIGHT AND H20 IN REACH. LIGHTS DIMMED. PT DENIES HAVING ANY FURTHER CONCERNS OR REQUESTS.
--- NOTE | 2018-01-30 23:11 | NUR ---
pt assisted up to restroom with sba. pt has slow but steady gait. agrees to use call light when finished in restroom. fresh ice water provided per pt request.
--- NOTE | 2018-01-30 23:28 | NUR ---
PATIENT UP TO THE BATHROOM AND VOIDED AND HAD A BM AND THEN WENT BACK TO BED. CALL LIGHT IN REACH, PATIENT HAD NO OTHER NEEDS.
--- NOTE | 2018-01-31 02:05 | NUR ---
PT RESTING SUPINE IN BED WATCHING TV, ASSESSMENT COMPLETED. FRESH ICE WATER PROVIDED, NO FURTHER NEEDS VOICED. CALL LIGHT IN REACH.
--- NOTE | 2018-01-31 04:10 | NUR ---
pt resting in bed watching tv call light in reach. pt denies needs "I'm doing okay".
--- NOTE | 2018-01-31 05:50 | NUR ---
PT UP WATCHING TV MUCH OF NIGHT, DENIES PAIN, SOB OR OTHER NEEDS/CONCERNS. PT APPEARED TO BE IN BETTER SPIRITS THIS SHIFT AND WAS LARGELY COMPLIANT WITH ASSESSMENTS AND INTERVENTIONS. PT REMAINS A/O X4, ON ROOM AIR. SCHEDULED IV ANTIBIOTICS. PT IS 1 PERSON ASSIST. VSS. BID DRESSING CHANGES. POSSIBLE PICC PLACEMENT TODAY AND HOSPICE CONSULT WITH COMFORT MEASURES.
--- NOTE | 2018-01-31 06:06 | NUR ---
pt resting supine in bed respirations even and unlabored assessment completed. dressing cahnged, cleansed with ns and pat dried with guaze and packed with ns soaked guaze and cocered with dry guaze and tape. no needs voiced. call light and fresh ice water in reach.
--- NOTE | 2018-01-31 08:58 | NUR ---
PT IS IN GOOD SPIRITS THIS MORNING, ATE BREAKFAST AND TOOK SCHEDULED MEDS, GETTING READY TO TAKE A SHOWER. FAMILY IN ROOM.
--- NOTE | 2018-01-31 09:05 | NUR ---
PATIENT UP TO BATHROOM, SBA. NURSING HOME DIRECTOR SET UP SHOWER, PATIENT INDEPENDENT IN SHOWER. NEW GOWN PROVIDED. LINENS CHANGED. PATIENT AMBULATED WITH FAMILY 1 LAP AROUND HALLWAY. PATIENT NOW BACK TO BED, SBA. CALL LIGHT IN REACH. NO FURTHER NEEDS AT THIS TIME.
--- NOTE | 2018-01-31 09:06 | NUR ---
NOTIFIED FLACO WILLIAM RN OF CONSULT FOR PICC LINE PLACEMENT TODAY, FOR POSSIBLE DISCHARGE TODAY.
--- NOTE | 2018-01-31 11:15 | NUR ---
PATIENT UP IN BED WATCHING TV. FRESHWATER GIVEN. CALL LIGHT IN REACH. NO FURTHER NEEDS AT THIS TIME.
--- NOTE | 2018-01-31 11:24 | NUR ---
PICC PLACEMENT NOTE ORDERS RECIEVED TO EVALUATE KINJAL FOR POSSIBLE PICC INSERTION. AFTER REVIEWING THE CHART AND DISCUSSING CARE WITH THE PRIMARY RN AND KINJAL, NO ABSOLUTE CONTRAINDICATIONS WERE FOUND. RISKS AND COMPLICATIONS OF PICC LINES WERE DISCUSSED AND INFORMED CONSENT SIGNED PRIOR TO START OF THE PROCEDURE. THE LEFT ARM IS RULED OUT FOR A PICC KINJAL IS RECOVERING FROM AN INFECTED EXPLANTED PORT WITH AN OPEN WOUND REMAINING. THE RISK OF INFECTION IS QUITE HIGH AND THIS IS REVIEWED WITH THE PT PRIOR TO DECIDING TO DO A PICC THE RIGHT ARM WAS EXAMINIED WITH JUSTUS MUJICA U/S AND THE RIGHT BASILIC VEIN IS MORE THAN LARGE ENOUGH FOR THE 4 FR PICC. THE RIGHT ARM WAS PREPPED AND DRAPED AND THERE WERE NO ISSUES WITH VEIN ACCESS, GUIDE WIRE, OR INTRODUCER ADVANCEMENT. THE PICC DID ADVANCE AND MAGNET TRACKING HAD DIFFICULTY PICKING UP A SIGNAL ON THE LINE DESPITE OUR EFFORTS. A CXR WAS TAKEN SHOWING THE PICC EXTENDING UP THE RIGHT NECK. THE LINE WAS WITHDRAWN AND READVANCED AGAIN WITH MAGNET TRACKING AND ARM POSITIONING AND WE WERE ABLE TO GET THE LINE TO DROP TO A CENTRAL LOCATION. ANOTHER CXR WAS TAKEN AND WE ARE AWIAITING CONFIRMATION OF PLACEMENT FROM RADIOLOGY PRIOR TO USING THE LINE. EDUCATION REGARDING CARE OF PICC LINES WAS DISCUSSED WITH THE PATIENT AND HANDOUTS GIVEN TO HIM. HE UNDERSTANDS THAT HE NEEDS TO SEEK MEDICAL ATTENTION FOR ANY QUESTIONS RELATING TO HIS PICC.
--- NOTE | 2018-01-31 11:59 | NUR ---
PT REMAINS IN GOOD SPIRITS. SITTING UP IN BED VISITING WITH FAMILY. PICC LINE INSERTION SITE CDI. PT DENIES DISCOMFORT. WAITING FOR ON TO USE PICC LINE.
--- NOTE | 2018-01-31 12:08 | NUR ---
FLACO WILLIAM PICC LINE RN NOTIFIED STAFF THAT PICC LINE PLACEMENT IS CONFIRMED AND OK TO USE
--- NOTE | 2018-01-31 12:54 | NUR ---
SPOKE WITH PT ABOUT ABX INFUSION, STATES DAUGHTER WILL BE HERE IN A FEW MINUTES FOR TEACHING. PT IS MOTIVATED AND IN GOOD SPIRITS.
--- NOTE | 2018-01-31 13:15 | NUR ---
PT APPEARS TO BE IN GOOD SPIRITS, SITTING UP IN BED VISITING WITH GRANDD. EXTENDED A BLESSING, PT IS TO BE DC'D HOME ON HOSPICE. WILL FOLLOW NEEDED
--- NOTE | 2018-01-31 13:26 | NUR ---
DAPTOMYACIN INFUSION STARTED. DEMONSTRATED TECHNIQUE FOR ADMINISTERING ABX, FLUSHING WITH 10ML NS BEFORE AND AFTER, DAUGHTER ABLE TO DEMONSTRATE FLUSHING OF PICC LINE AND ADMINISTRATION OF ABX VIA SYRINGE CORRECTLY, REVIEWED S/SX TO REPORT. PT AND DAUGHTER VERBALIZES UNDERSTANDING AND HVE NO FURTHER QUESTIONS. SPOKE WITH DR FRANK AND PT MAY GO HOME 1 HOUR AFTER INFUSION, MONITORING FOR ADVERSE SIDE EFFECTS.
--- NOTE | 2018-01-31 13:59 | NUR ---
PATIENT IN BED TALKING WITH FAMILY AND WAITING FOR LUNCH. CALL LIGHT IN REACH. NO FURTHER NEEDS AT THIS TIME.
[2018-01-31] MEDS ORDERED: CUBICIN500 MG/10 IV (14:09)
--- NOTE | 2018-01-31 14:25 | NUR ---
PT ATE 90% OF LUNCH. NO ADVESE SE FROM NEW ABX. VISITING WITH DAUGHTER.
--- NOTE | 2018-01-31 15:15 | NUR ---
DAUGHTER HERE WITH CLOTHING TO WEAR HOME. SL REMOVED FROM L ARM INTACT. PT IN GOOD SPIRITS.
--- NOTE | 2018-01-31 15:47 | NUR ---
DC HOME WITH DAUGHTER AT THIS TIME. DISHARGE PACKET WITH PT. NO NEW QUESTIONS.
--- NOTE | 2018-02-01 15:31 | NUR ---
FAXED DC SUMMARY AND PACKET TO [facility],
--- NOTE | 2018-02-01 16:06 | NUR ---
RECIEVED FAX CONFIRMATION
== END 2018-01-31 15:30 | disposition home health service (06) | DRG 314 ==
LOC: ED 15:26 → CCU 18:25 → MS 18:25
PROVIDERS: Colon & Rectal Surgery; ADMIT Internal Medicine
PROC: 0JPT0WZ Removal of Totally Implantable Vascular Access Device from Trunk Subcutaneous Tissue and Fascia, Open Approach (ICD-10-PCS; principal; 2018-01-24 17:00)
PROC: 02HV33Z Insertion of Infusion Device into Superior Vena Cava, Percutaneous Approach (ICD-10-PCS; 2018-01-31)
DX: T80.211A Bloodstream infection due to central venous catheter, initial encounter (principal); A41.01 Sepsis due to Methicillin susceptible Staphylococcus aureus; J18.9 Pneumonia, unspecified organism; E43 Unspecified severe protein-calorie malnutrition; T81.31XA Disruption of external operation (surgical) wound, not elsewhere classified, initial encounter; C79.51 Secondary malignant neoplasm of bone; C78.7 Secondary malignant neoplasm of liver and intrahepatic bile duct; C44.399 Other specified malignant neoplasm of skin of other parts of face; E55.9 Vitamin D deficiency, unspecified; L89.90 Pressure ulcer of unspecified site, unspecified stage; L05.92 Pilonidal sinus without abscess; I10 Essential (primary) hypertension; E11.9 Type 2 diabetes mellitus without complications; K21.9 Gastro-esophageal reflux disease without esophagitis; M10.9 Gout, unspecified; Z66 Do not resuscitate; Z68.21 Body mass index [BMI] 21.0-21.9, adult; Z79.84 Long term (current) use of oral hypoglycemic drugs; Z79.1 Long term (current) use of non-steroidal anti-inflammatories (NSAID); Z79.82 Long term (current) use of aspirin; Z79.891 Long term (current) use of opiate analgesic; Z79.52 Long term (current) use of systemic steroids; Z79.899 Other long term (current) drug therapy
CPT/HCPCS: 36415; 36569; 71045; 80053; 80069; 80202; 81001; 82306; 83036; 83605; 83735; 85025; 87040; 87045; 87046; 87070; 87075; 87077; 87186; 87205; 87449; 87493; 87899; 93306; 94667; 94668; 96361; 96365; 96367; 96375; 97110; 97116; 97163; 99285; C1751; J0692; J0878; J1650; J1815; J1956; J2250; J2700; J2704; J3370; J3475; J7030; J7050; J7120